=== PATIENT | male | born 1945 | race Two or more races ===

== ENCOUNTER 2017-06-08 11:03 | Observation (INO) | payer MEDICARE, MEDICAID ==
[~2017-06-08] VITALS: Ht 165.1 cm; Wt 72.6 kg
[~2017-06-08 11:03] MED LIST: ASPI81CH43 OR; CHOL1000 PO; GEM600T PO; GLIP2.5T24 PO; OMEP20TA44; TAMS0.4C36 PO
[2017-06-08 12:38] LABS: Urine Bacteria NONE SEEN /hpf (None Seen); Urine Blood Negative /uL (Negative); Urine Mucus FEW (None Seen); Urine Specific Gravity 1.013 (1.001-1.035); Urine WBC <1 /hpf (0 - 3)
[2017-06-08 13:02] LABS: Basophils # (auto) 0 uL; Eosinophils # (auto) 0.1 uL; Monocytes # (auto) 0.3 uL; White Blood Cell 3.5 10^3/uL (4.4-10.8)
[2017-06-08 13:04] LABS: Basophils % (auto) 0.3 % (0.0-2.0); Eosinophils % (auto) 3.4 % (0.0-7.0); Hematocrit 36.5 % (41.0-53.0); Hemoglobin 11.6 g/dL (13.5-17.5); Lymphocytes # (auto) 1.1 uL; Lymphocytes % (auto) 30.5 % (10.0-50.0); Mean Corpuscular Hemoglobin 23.2 pg (28.0-32.0); Mean Corpuscular Hgb Conc. 31.8 g/dL (32.0-36.0); Monocytes % (auto) 9.1 % (0.0-12.0); Neutrophils % (auto) 56.7 % (37.0-80.0); Nucleated Red Blood Cells % 0.2 %; Platelet Count (auto) 211 10^3/uL (140-450); Red Cell Distribution Width 17.8 % (11.8-14.3)
[2017-06-08 13:31] LABS: Alanine Aminotransferase 49 U/L (16-61); Albumin 4.2 g/dL (3.4-5.0); Anion Gap 13 (5-15); Aspartate Aminotransferase 44 U/L (15-37); BUN/Creatinine Ratio 18.2; Blood Urea Nitrogen 20 mg/dL (7-18); Calcium 9.6 mg/dL (8.5-10.1); Carbon Dioxide 22 mmol/L (21-32); Chloride 100 mmol/L (98-107); GFR African American 84 mL/min; GFR Non-African American 70 mL/min; Glucose 275 mg/dL (74-106); Potassium 4.3 mmol/L (3.5-5.1); Sodium 135 mmol/L (136-145)
[2017-06-08 13:35] LABS: Alkaline Phosphatase 71 U/L (45-117); Bilirubin, Total 0.3 mg/dL (0.2-1.0)
[2017-06-08 13:36] LABS: Total Protein 8.3 g/dL (6.4-8.2)
[2017-06-08 15:17] VITALS: BP 150/88
== END 2017-06-08 16:11 | disposition home or self-care (01) | DRG 812 ==
LOC: ER 11:03 → OVERFLOW 12:37 → ER 16:11
PROVIDERS: ADMIT Family Medicine; ATTEND Family Medicine
DX: D64.9 Anemia, unspecified (principal); E11.65 Type 2 diabetes mellitus with hyperglycemia; I10 Essential (primary) hypertension; K21.9 Gastro-esophageal reflux disease without esophagitis; Z82.49 Family history of ischemic heart disease and other diseases of the circulatory system; Z83.3 Family history of diabetes mellitus; Z90.49 Acquired absence of other specified parts of digestive tract
CPT/HCPCS: 36415; 71045; 80053; 81001; 82962; 83735; 83880; 84484; 85025; 93005; 99285; G0378

== ENCOUNTER 2022-04-16 09:31 | Inpatient (IN) | payer OTHER, MEDICAID ==
[~2022-04-16] VITALS: Ht 157.5 cm; Wt 74.7 kg
[~2022-04-16 09:31] MED LIST changes: +CHOL-17 PO; -CHOL1000 PO; -OMEP20TA44; +OMEP20TA44 PO
[2022-04-16] MEDS ORDERED: SODIUM CHLORIDE 0.9% 1,000 ML IV ONE (10:15)
[2022-04-16 11:01] LABS: Albumin 3.7 g/dL (3.4-5.0); Calcium 8.9 mg/dL (8.5-10.1); Potassium 4.5 mmol/L (3.5-5.1)
[2022-04-16 11:04] LABS: Basophils # (auto) 0 10 ^3/uL (0-0.2); Basophils % (auto) 0.2 % (0.0-2.0); Eosinophils # (auto) 0.1 10 ^3/uL (0-0.8); Eosinophils % (auto) 1.8 % (0.0-7.0); Hematocrit 30.7 % (41.0-53.0); Lymphocytes # (auto) 0.8 10 ^3/uL (0.4-5.4); Lymphocytes % (auto) 14.9 % (10.0-50.0); Mean Corpuscular Hemoglobin 26.9 pg (28.0-32.0); Mean Corpuscular Hgb Conc. 32.4 g/dL (32.0-36.0); Monocytes # (auto) 0.3 10 ^3/uL (0-1.3); Monocytes % (auto) 5.6 % (0.0-12.0); Neutrophils % (auto) 77.5 % (37.0-80.0); Nucleated Red Blood Cells % 0.1 %; Red Cell Distribution Width 14.4 % (11.8-14.3); White Blood Cell 5.1 10^3/uL (4.4-10.8)
[2022-04-16 11:07] LABS: BUN/Creatinine Ratio 19.1; Bilirubin, Total 0.3 mg/dL (0.2-1.0); Total Protein 6.5 g/dL (6.4-8.2)
[2022-04-17] MEDS ORDERED: HYDROcodone-ACET 5/325MG TAB PO PRN (02:45)
[2022-04-17] MEDS ORDERED: MORPHINE SULFATE INJ 2 MG/ml SYRG IV PRN ×2 (02:45→03:00)
[2022-04-17] MEDS ORDERED: DOCUSATE SOD 100 MG CAP PO PRN (02:45)
[2022-04-17] MEDS ORDERED: NITROGLYCERIN 0.4 MG SL TAB SL PRN ×2 (02:45→03:00)
[2022-04-17] MEDS ORDERED: ACETAMINOPHEN 325 MG TAB PO PRN (02:45)
[2022-04-17] MEDS ORDERED: SODIUM CHLORIDE 0.9% 1,000 ML IV SCH (02:45)
[2022-04-17] MEDS ORDERED: ONDANSETRON HCL 4 MG/2 ML VIAL IV PRN ×2 (02:45→22:00)
[2022-04-17] MEDS ORDERED: DEXTROSE (50%) 50ML SYRG IV PRN (02:45)
[2022-04-17] MEDS ORDERED: LACTULOSE 20Gm/30ML SOLN PO ONE (03:00)
[2022-04-17] MEDS ORDERED: SOD CHL 0.45% 1,000 ML IV ONE (03:15)
[2022-04-17] MEDS ORDERED: GOLYTELY 4L KIT PO ONE (04:00)
[2022-04-17 05:54] LABS: Basophils # (auto) 0 10 ^3/uL (0-0.2); Basophils % (auto) 0.3 % (0.0-2.0); Eosinophils # (auto) 0.2 10 ^3/uL (0-0.8); Hematocrit 25.5 % (41.0-53.0); Hemoglobin 8.6 g/dL (13.5-17.5); Lymphocytes # (auto) 1.3 10 ^3/uL (0.4-5.4); Lymphocytes % (auto) 22.8 % (10.0-50.0); Mean Corpuscular Hemoglobin 27.3 pg (28.0-32.0); Mean Corpuscular Hgb Conc. 33.6 g/dL (32.0-36.0); Mean Corpuscular Volume 81.2 fL (80.0-100.0); Monocytes # (auto) 0.4 10 ^3/uL (0-1.3); Monocytes % (auto) 7.3 % (0.0-12.0); Neutrophils # (auto) 3.7 10 ^3/uL (1.6-8.6); Neutrophils % (auto) 65.6 % (37.0-80.0); Red Blood Cells 3.14 10^6/uL (4.5-5.90); Red Cell Distribution Width 14.6 % (11.8-14.3); White Blood Cell 5.6 10^3/uL (4.4-10.8)
[2022-04-17] MEDS: ACCU-CHEK COMFORT CURVE STRIP VI SCH ×3 (06:00→18:09)
[2022-04-17 06:01] LABS: INR 0.99 (0.9-1.15)
[2022-04-17 06:15] LABS: Calcium 8.7 mg/dL (8.5-10.1); Potassium 4.3 mmol/L (3.5-5.1)
[2022-04-17 06:20] LABS: Albumin 3.2 g/dL (3.4-5.0); BUN/Creatinine Ratio 28.2; Bilirubin, Total 0.3 mg/dL (0.2-1.0)
[2022-04-17 06:38] LABS: Urine Bacteria NONE SEEN /hpf (None Seen); Urine Blood Negative /uL (Negative); Urine Hyaline Cast FEW /lpf (0 - 2); Urine Specific Gravity 1.013 (1.001-1.035); Urine WBC <1 /hpf (0 - 3)
[2022-04-17] MEDS: InsuLIN REG 1unit/0.01ml Soln (100units/ml) SC SCH ×3 (07:42→18:09)
[2022-04-17] MEDS ORDERED: FAMOTIDINE (10MG/ML) 2ML VL IV SCH (10:00)
[2022-04-17] MEDS: PANTOPRAZOLE 40 MG/10 ML VIAL INJ IV SCH ×2 (10:34→22:39)
[2022-04-17 12:00] LABS: Basophils # (auto) 0 10 ^3/uL (0-0.2); Basophils % (auto) 0.2 % (0.0-2.0); Eosinophils # (auto) 0.3 10 ^3/uL (0-0.8); Eosinophils % (auto) 3.5 % (0.0-7.0); Hematocrit 27.9 % (41.0-53.0); Hemoglobin 9.4 g/dL (13.5-17.5); Lymphocytes # (auto) 2.1 10 ^3/uL (0.4-5.4); Lymphocytes % (auto) 26.6 % (10.0-50.0); Mean Corpuscular Hemoglobin 27.1 pg (28.0-32.0); Mean Corpuscular Hgb Conc. 33.5 g/dL (32.0-36.0); Monocytes # (auto) 0.5 10 ^3/uL (0-1.3); Neutrophils # (auto) 5.1 10 ^3/uL (1.6-8.6); Neutrophils % (auto) 63.7 % (37.0-80.0); Nucleated Red Blood Cells % 0.1 %; Red Blood Cells 3.45 10^6/uL (4.5-5.90); Red Cell Distribution Width 14.6 % (11.8-14.3); White Blood Cell 8.1 10^3/uL (4.4-10.8)
[2022-04-17] MEDS: OCTREOTIDE ACETATE 500 MCG in SODIUM CHL 0.9% 99 ML IV SCH (15:29)
[2022-04-17 19:28] LABS: Hematocrit 22.1 % (41.0-53.0); Hemoglobin 7.5 g/dL (13.5-17.5)
[2022-04-17] MEDS: MORPHINE SULFATE INJ 2 MG/ml SYRG IV PRN (22:37)
[2022-04-18] MEDS: ACCU-CHEK COMFORT CURVE STRIP VI SCH ×5 (01:00→23:50)
[2022-04-18] MEDS: InsuLIN REG 1unit/0.01ml Soln (100units/ml) SC SCH ×5 (01:10→23:50)
[2022-04-18] MEDS: OCTREOTIDE ACETATE 500 MCG in SODIUM CHL 0.9% 99 ML IV SCH ×4 (01:12→22:07)
[2022-04-18 02:33] LABS: Hematocrit 20.4 % (41.0-53.0)
[2022-04-18 02:42] LABS: Hemoglobin 6.8 g/dL (13.5-17.5)
[2022-04-18 03:33] VITALS: BP 138/56
[2022-04-18 03:50] VITALS: BP 146/51
[2022-04-18 06:50] VITALS: BP 148/50
[2022-04-18 08:55] LABS: Basophils # (auto) 0 10 ^3/uL (0-0.2); Basophils % (auto) 0.2 % (0.0-2.0); Eosinophils # (auto) 0.1 10 ^3/uL (0-0.8); Eosinophils % (auto) 1.4 % (0.0-7.0); Hematocrit 27.3 % (41.0-53.0); Hemoglobin 8.9 g/dL (13.5-17.5); Lymphocytes # (auto) 1.7 10 ^3/uL (0.4-5.4); Lymphocytes % (auto) 17.6 % (10.0-50.0); Mean Corpuscular Hgb Conc. 32.4 g/dL (32.0-36.0); Mean Corpuscular Volume 83.2 fL (80.0-100.0); Monocytes # (auto) 0.7 10 ^3/uL (0-1.3); Monocytes % (auto) 7.2 % (0.0-12.0); Neutrophils # (auto) 7.1 10 ^3/uL (1.6-8.6); Neutrophils % (auto) 73.6 % (37.0-80.0); Nucleated Red Blood Cells % 0.1 %; Red Blood Cells 3.28 10^6/uL (4.5-5.90); Red Cell Distribution Width 15.1 % (11.8-14.3); White Blood Cell 9.6 10^3/uL (4.4-10.8)
[2022-04-18 09:07] LABS: Albumin 3.3 g/dL (3.4-5.0); Calcium 8.3 mg/dL (8.5-10.1); Potassium 4.3 mmol/L (3.5-5.1)
[2022-04-18 09:11] LABS: BUN/Creatinine Ratio 24.8; Bilirubin, Total 0.6 mg/dL (0.2-1.0); Total Protein 6.1 g/dL (6.4-8.2)
[2022-04-18] MEDS: PANTOPRAZOLE 40 MG/10 ML VIAL INJ IV SCH ×2 (09:42→22:06)
[2022-04-18] MEDS ORDERED: GOLYTELY 4L KIT PO ONE (12:30)
[2022-04-18 13:23] LABS: Basophils # (auto) 0 10 ^3/uL (0-0.2); Basophils % (auto) 0.3 % (0.0-2.0); Eosinophils # (auto) 0.2 10 ^3/uL (0-0.8); Eosinophils % (auto) 1.8 % (0.0-7.0); Hematocrit 25.1 % (41.0-53.0); Hemoglobin 8.5 g/dL (13.5-17.5); Lymphocytes # (auto) 1.7 10 ^3/uL (0.4-5.4); Lymphocytes % (auto) 19.2 % (10.0-50.0); Mean Corpuscular Hemoglobin 27.9 pg (28.0-32.0); Mean Corpuscular Hgb Conc. 33.8 g/dL (32.0-36.0); Mean Corpuscular Volume 82.4 fL (80.0-100.0); Monocytes # (auto) 0.6 10 ^3/uL (0-1.3); Monocytes % (auto) 7.1 % (0.0-12.0); Neutrophils # (auto) 6.5 10 ^3/uL (1.6-8.6); Neutrophils % (auto) 71.6 % (37.0-80.0); Nucleated Red Blood Cells % 0.1 %; Red Blood Cells 3.05 10^6/uL (4.5-5.90); Red Cell Distribution Width 14.9 % (11.8-14.3); White Blood Cell 9.1 10^3/uL (4.4-10.8)
[2022-04-18 13:24] LABS: Hematocrit 25.2 % (41.0-53.0); Hemoglobin 8.6 g/dL (13.5-17.5)
[2022-04-18 18:12] VITALS: BP 158/64
[2022-04-18 18:13] LABS: Hematocrit 25.4 % (41.0-53.0); Hemoglobin 8.6 g/dL (13.5-17.5)
[2022-04-18] MEDS ORDERED: CARB25TA77 PO (19:02)
[2022-04-18] MEDS ORDERED: NAP500T PO (19:02)
[2022-04-18] MEDS ORDERED: LOSA-39 PO (19:02)
[2022-04-18 22:00] VITALS: BP 152/70
[2022-04-18] MEDS ORDERED: POLYETHYLENE GLYCOL 17 GM PWDR PO ONE (22:45)
[2022-04-19] VITALS (9 sets, daily range): BP systolic 137–185; BP diastolic 59–77
[2022-04-19] MEDS: InsuLIN REG 1unit/0.01ml Soln (100units/ml) SC SCH ×4 (06:00→23:37)
[2022-04-19] MEDS: ACCU-CHEK COMFORT CURVE STRIP VI SCH ×3 (06:12→17:41)
[2022-04-19 07:33] LABS: Basophils # (auto) 0 10 ^3/uL (0-0.2); Basophils % (auto) 0.3 % (0.0-2.0); Eosinophils # (auto) 0.3 10 ^3/uL (0-0.8); Hemoglobin 8.1 g/dL (13.5-17.5); Mean Corpuscular Volume 81.7 fL (80.0-100.0); Neutrophils # (auto) 4.3 10 ^3/uL (1.6-8.6); Nucleated Red Blood Cells % 0.1 %
[2022-04-19 07:36] LABS: Eosinophils % (auto) 4.7 % (0.0-7.0); Hematocrit 23.7 % (41.0-53.0); Lymphocytes # (auto) 1.3 10 ^3/uL (0.4-5.4); Lymphocytes % (auto) 20.5 % (10.0-50.0); Mean Corpuscular Hemoglobin 27.9 pg (28.0-32.0); Mean Corpuscular Hgb Conc. 34.2 g/dL (32.0-36.0); Monocytes # (auto) 0.4 10 ^3/uL (0-1.3); Monocytes % (auto) 6.3 % (0.0-12.0); Neutrophils % (auto) 68.2 % (37.0-80.0); White Blood Cell 6.3 10^3/uL (4.4-10.8)
[2022-04-19 08:01] LABS: Potassium 3.9 mmol/L (3.5-5.1)
[2022-04-19 08:09] LABS: Albumin 3.5 g/dL (3.4-5.0); Bilirubin, Total 0.4 mg/dL (0.2-1.0); Calcium 8.2 mg/dL (8.5-10.1); Total Protein 6.4 g/dL (6.4-8.2)
[2022-04-19] MEDS: PANTOPRAZOLE 40 MG/10 ML VIAL INJ IV SCH ×2 (08:51→22:13)
[2022-04-19] MEDS: OCTREOTIDE ACETATE 500 MCG in SODIUM CHL 0.9% 99 ML IV SCH (08:52)
[2022-04-19] MEDS: MORPHINE SULFATE INJ 2 MG/ml SYRG IV PRN (09:24)
[2022-04-19] MEDS ORDERED: hydrALAZINE HCL 20 MG/ML VL IV PRN (10:15)
[2022-04-19] MEDS ORDERED: amLODIPine BESYLATE 5 MG TAB PO ONE (10:15)
[2022-04-19] MEDS ORDERED: SODIUM CHLORIDE LOCK 10 ML ONE (16:56)
[2022-04-19 17:52] LABS: Hematocrit 24.9 % (41.0-53.0); Hemoglobin 8.1 g/dL (13.5-17.5)
[2022-04-19] MEDS: MIDAZOLAM HCL 5 MG/ML-1ML VIAL ONE ×2 (19:12→19:17)
[2022-04-19] MEDS: fentaNYL CITRATE 100 MCG/2 ML VL ONE ×2 (19:12→19:17)
[2022-04-19] MEDS: diphenhdrAMINE HCL 50 MG/1 ML VL ONE ×2 (19:12→19:17)
[2022-04-20] MEDS: ACCU-CHEK COMFORT CURVE STRIP VI SCH ×3 (00:02→12:00)
[2022-04-20] MEDS: OCTREOTIDE ACETATE 500 MCG in SODIUM CHL 0.9% 99 ML IV SCH ×2 (01:39→11:45)
[2022-04-20 05:00] VITALS: BP 135/57
[2022-04-20] MEDS: InsuLIN REG 1unit/0.01ml Soln (100units/ml) SC SCH ×2 (05:57→12:00)
[2022-04-20 06:21] LABS: Basophils # (auto) 0 10 ^3/uL (0-0.2); Basophils % (auto) 0.2 % (0.0-2.0); Eosinophils # (auto) 0.3 10 ^3/uL (0-0.8); Hematocrit 23.5 % (41.0-53.0); Hemoglobin 7.8 g/dL (13.5-17.5); Lymphocytes # (auto) 1.6 10 ^3/uL (0.4-5.4); Lymphocytes % (auto) 24.6 % (10.0-50.0); Mean Corpuscular Hemoglobin 27.6 pg (28.0-32.0); Mean Corpuscular Hgb Conc. 33.4 g/dL (32.0-36.0); Mean Corpuscular Volume 82.5 fL (80.0-100.0); Monocytes # (auto) 0.5 10 ^3/uL (0-1.3); Monocytes % (auto) 7.3 % (0.0-12.0); Neutrophils # (auto) 4.1 10 ^3/uL (1.6-8.6); Neutrophils % (auto) 62.9 % (37.0-80.0); Nucleated Red Blood Cells % 0.1 %; Red Blood Cells 2.85 10^6/uL (4.5-5.90); Red Cell Distribution Width 14.9 % (11.8-14.3); White Blood Cell 6.5 10^3/uL (4.4-10.8)
[2022-04-20 06:36] LABS: Albumin 3.3 g/dL (3.4-5.0); Calcium 8.3 mg/dL (8.5-10.1); Potassium 3.6 mmol/L (3.5-5.1)
[2022-04-20 06:39] LABS: BUN/Creatinine Ratio 20.2; Bilirubin, Total 0.7 mg/dL (0.2-1.0); Total Protein 5.9 g/dL (6.4-8.2)
[2022-04-20 08:15] VITALS: BP 163/46
[2022-04-20 09:10] VITALS: BP 163/46
[2022-04-20] MEDS ORDERED: amLODIPine BESYLATE 5 MG TAB PO SCH (10:00)
[2022-04-20] MEDS: PANTOPRAZOLE 40 MG/10 ML VIAL INJ IV SCH (10:22)
[2022-04-20 10:23] LABS: Hematocrit 26.8 % (41.0-53.0); Hemoglobin 8.9 g/dL (13.5-17.5)
[2022-04-20] MEDS ORDERED: FERR324T4 PO (10:27)
[2022-04-20] MEDS ORDERED: VITACAP46 OR (10:27)
[2022-04-20 12:34] VITALS: BP 145/54
[2022-04-20 13:13] VITALS: BP 145/54
== END 2022-04-20 13:40 | disposition home health service (06) | DRG 378 ==
LOC: ER 09:31 → OVERFLOW 04-17 03:03 → UNDOADMOB 04-17 03:03 → CENTRAL 04-18 17:35 → OVERFLOW 04-18 17:35 → CENTRAL 04-19 03:18 → OBSVTOIN 04-19 03:19
PROVIDERS: ADMIT Internal Medicine; ATTEND Internal Medicine
PROC: 30233N1 Transfusion of Nonautologous Red Blood Cells into Peripheral Vein, Percutaneous Approach (ICD-10-PCS; principal; 2022-04-18)
PROC: 30233K1 Transfusion of Nonautologous Frozen Plasma into Peripheral Vein, Percutaneous Approach (ICD-10-PCS; 2022-04-19)
PROC: 0DJD8ZZ Inspection of Lower Intestinal Tract, Via Natural or Artificial Opening Endoscopic (ICD-10-PCS; 2022-04-19)
DX: K57.31 Diverticulosis of large intestine without perforation or abscess with bleeding (principal); D62 Acute posthemorrhagic anemia; E11.65 Type 2 diabetes mellitus with hyperglycemia; E78.5 Hyperlipidemia, unspecified; G20 Parkinson's disease; I10 Essential (primary) hypertension; K21.9 Gastro-esophageal reflux disease without esophagitis; K64.8 Other hemorrhoids; K76.0 Fatty (change of) liver, not elsewhere classified; Z20.822 Contact with and (suspected) exposure to COVID-19; Z83.3 Family history of diabetes mellitus; Z90.49 Acquired absence of other specified parts of digestive tract; Z79.84 Long term (current) use of oral hypoglycemic drugs
CPT/HCPCS: 36415; 71045; 74176; 80053; 81001; 82962; 85014; 85018; 85025; 85610; 86850; 86900; 86901; 86920; 87426; C9113; G0378; J1815; J2250; J2405; J3490

== ENCOUNTER 2022-08-12 09:14 | Emergency (ER) | payer OTHER, MEDICAID ==
[~2022-08-12] VITALS: Ht 162.6 cm; Wt 68.1 kg
[~2022-08-12 09:14] MED LIST changes: -ASPI81CH43 OR; +CARB25TA77 PO; +FERR324T4 PO; +LOSA-39 PO; +VITACAP46 OR
[2022-08-12 10:22] LABS: Potassium 4.2 mmol/L (3.5-5.1)
[2022-08-12 10:42] LABS: Albumin 4.3 g/dL (3.4-5.0); BUN/Creatinine Ratio 22.2 (10.0-20.0); Basophils # (auto) 0 10 ^3/uL (0-0.2); Bilirubin, Total 0.4 mg/dL (0.2-1.0); Calcium 9.1 mg/dL (8.5-10.1); Eosinophils # (auto) 0.1 10 ^3/uL (0-0.8); Hemoglobin 12.2 g/dL (13.5-17.5); Red Cell Distribution Width 15.4 % (11.8-14.3); Total Protein 8.2 g/dL (6.4-8.2)
[2022-08-12 10:44] LABS: Basophils % (auto) 0.2 % (0.0-2.0); Eosinophils % (auto) 2.9 % (0.0-7.0); Hematocrit 37.5 % (41.0-53.0); Lymphocytes % (auto) 25.5 % (10.0-50.0); Mean Corpuscular Hemoglobin 25.8 pg (28.0-32.0); Mean Corpuscular Hgb Conc. 32.6 g/dL (32.0-36.0); Mean Corpuscular Volume 79.2 fL (80.0-100.0); Monocytes # (auto) 0.3 10 ^3/uL (0-1.3); Monocytes % (auto) 7.6 % (0.0-12.0); Neutrophils # (auto) 2.4 10 ^3/uL (1.6-8.6); Neutrophils % (auto) 63.8 % (37.0-80.0); Red Blood Cells 4.74 10^6/uL (4.5-5.90); White Blood Cell 3.7 10^3/uL (4.4-10.8)
[2022-08-12 11:13] LABS: Lactic Acid w/Reflex 3.3 mmol/L (0.4-2.0)
[2022-08-12] MEDS ORDERED: IOHEXOL 300 MG/ML 100ML BOTTLE IJ ONE (11:30)
[2022-08-12 11:47] LABS: INR 0.98 (0.9-1.15); Partial Thromboplastin Time 26.7 sec (24.6-33.4)
[2022-08-12] MEDS ORDERED: LACTATED RINGER'S 1,000 ML IV ONE (12:45)
[2022-08-12 13:57] LABS: Hematocrit 34.5 % (41.0-53.0); Hemoglobin 11.7 g/dL (13.5-17.5); Mean Corpuscular Hemoglobin 26.7 pg (28.0-32.0); Mean Corpuscular Hgb Conc. 33.8 g/dL (32.0-36.0); Mean Corpuscular Volume 78.8 fL (80.0-100.0); Red Blood Cells 4.38 10^6/uL (4.5-5.90); Red Cell Distribution Width 15.6 % (11.8-14.3); White Blood Cell 4.7 10^3/uL (4.4-10.8)
[2022-08-12 14:00] LABS: Basophils % (manual) 0 (0.0-2.0); Blast Cells 0; Metamyelocytes % 0; Myelocytes % 0; Promyelocytes % 0; Reactive Lymphocytes 0
[2022-08-12 14:04] LABS: Basophils # (auto) 0 10 ^3/uL (0-0.2); Basophils % (auto) 0.3 % (0.0-2.0); Eosinophils # (auto) 0.1 10 ^3/uL (0-0.8); Mean Corpuscular Hemoglobin 25.9 pg (28.0-32.0); Mean Corpuscular Hgb Conc. 32.6 g/dL (32.0-36.0); Neutrophils # (auto) 3.1 10 ^3/uL (1.6-8.6)
[2022-08-12 14:07] LABS: Eosinophils % (auto) 2.4 % (0.0-7.0); Hematocrit 38.2 % (41.0-53.0); Hemoglobin 12.5 g/dL (13.5-17.5); Lymphocytes # (auto) 1.6 10 ^3/uL (0.4-5.4); Lymphocytes % (auto) 31.5 % (10.0-50.0); Mean Corpuscular Volume 79.3 fL (80.0-100.0); Monocytes # (auto) 0.3 10 ^3/uL (0-1.3); Monocytes % (auto) 6.5 % (0.0-12.0); Neutrophils % (auto) 59.3 % (37.0-80.0); Nucleated Red Blood Cells % 0.5 %; Red Blood Cells 4.82 10^6/uL (4.5-5.90); White Blood Cell 5.2 10^3/uL (4.4-10.8)
[2022-08-12 14:12] LABS: Urine WBC None Seen /hpf (0 - 3)
[2022-08-12 14:20] LABS: Urine Bacteria NONE SEEN /hpf (None Seen); Urine Blood Negative /uL (Negative)
[2022-08-12 16:03] VITALS: BP 168/71
[2022-08-12 16:25] LABS: Band Neutrophils % (manual) 2; Eosinophils % (manual) 2 (0-7); Lymphocytes % (manual) 15 (10.0-50.0); Monocytes % (manual) 7 (0-12)
== END 2022-08-12 16:07 | disposition home or self-care (01) ==
LOC: EDUNIT# 09:14 → ER 09:14
DX: K62.5 Hemorrhage of anus and rectum (principal); E11.9 Type 2 diabetes mellitus without complications; E78.5 Hyperlipidemia, unspecified; I10 Essential (primary) hypertension; R06.02 Shortness of breath; Z20.822 Contact with and (suspected) exposure to COVID-19
CPT/HCPCS: 36415; 71045; 74177; 80053; 81001; 83605; 83880; 84484; 85007; 85025; 85027; 85610; 85730; 86850; 86900; 86901; 87426; 93005; 96360; 99285; Q9967

== ENCOUNTER 2023-05-14 09:22 | Observation (INO) | payer OTHER, MEDICAID ==
[~2023-05-14] VITALS: Ht 162.6 cm; Wt 57.6 kg
[2023-05-14] VITALS (7 sets, daily range): BP systolic 124–144; BP diastolic 36–64; PULSE 71–87; RESP 18–21; TEMP 97.5–97.9; O2SAT 98–100
[~2023-05-14 09:22] MED LIST changes: +DEXL60CA4 PO; +FENO200C25 PO; +GLYB5TAB66 PO; -LOSA-39 PO; +LOSA100T58 PO; +NIAC500T25 PO; +OME40GT PO; +TAMS-35 PO
[2023-05-14 10:13] LABS: Basophils # (auto) 0 10 ^3/uL (0-0.2); Basophils % (auto) 0.2 % (0.0-2.0); Eosinophils # (auto) 0 10 ^3/uL (0-0.8); Lymphocytes # (auto) 0.8 10 ^3/uL (0.4-5.4); Monocytes # (auto) 0.5 10 ^3/uL (0-1.3)
[2023-05-14 10:15] LABS: Eosinophils % (auto) 0.3 % (0.0-7.0); Hematocrit 19.3 % (41.0-53.0); Lymphocytes % (auto) 9.2 % (10.0-50.0); Mean Corpuscular Hgb Conc. 32.8 g/dL (32.0-36.0); Mean Corpuscular Volume 82.3 fL (80.0-100.0); Monocytes % (auto) 5.5 % (0.0-12.0); Neutrophils # (auto) 7.3 10 ^3/uL (1.6-8.6); Neutrophils % (auto) 84.8 % (37.0-80.0); Nucleated Red Blood Cells % 0.1 %; Red Blood Cells 2.34 10^6/uL (4.5-5.90); Red Cell Distribution Width 16.2 % (11.8-14.3); White Blood Cell 8.7 10^3/uL (4.4-10.8)
[2023-05-14 10:25] LABS: Hemoglobin 6.3 g/dL (13.5-17.5)
[2023-05-14 10:35] LABS: Alanine Aminotransferase 14 U/L (7-40); Albumin 4.1 g/dL (3.2-4.8); Alkaline Phosphatase 74 U/L (46-116); Anion Gap 15 (5-15); Aspartate Aminotransferase 8 U/L (13-40); BUN/Creatinine Ratio 24.2 (10.0-20.0); Bilirubin, Total 0.2 mg/dL (0.2-1.0); Blood Alcohol < 3.0 mg/dL (<10); Blood Urea Nitrogen 36 mg/dL (9-23); Calcium 8.7 mg/dL (8.5-10.1); Carbon Dioxide 15 mmol/L (20-30); Chloride 110 mmol/L (98-107); Glucose 285 mg/dL (74-106); Potassium 5.3 mmol/L (3.5-5.1); Sodium 140 mmol/L (136-145)
[2023-05-14 10:39] LABS: INR 1.04 (0.9-1.15); Partial Thromboplastin Time 22.6 SEC (24.5-34.5); Prothrombin Time 10.9 sec (9.3-11.8)
[2023-05-14 10:43] LABS: Anisocytosis Slight; Platelet Estimate Adequate
[2023-05-14 11:21] LABS: Urine Epithelial Cast None Seen /hpf (<5)
[2023-05-14 11:34] LABS: Urine Bacteria FEW /hpf (None Seen); Urine Blood Negative /uL (Negative); Urine Clarity Clear (Clear); Urine Color Yellow (Yellow); Urine Protein, UAD TRACE (Negative); Urine Specific Gravity 1.021 (1.001-1.035); Urine Urobilinogen Normal (Negative); Urine WBC <1 /hpf (0 - 3)
[2023-05-14 11:40] LABS: Amphetamine Screen, Urine Neg (NEGATIVE); Barbiturate Scree,Urine Neg (NEGATIVE); Benzodiazephine Screen, Urine Neg (NEGATIVE); Cocaine Screen, Urine Neg (NEGATIVE)
[2023-05-14 11:41] LABS: Cannabinoid Screen, Urine Neg (NEGATIVE); Opiate Scree,Urine Neg (NEGATIVE); Phencyclidine Screen, Urine Neg (NEGATIVE)
[2023-05-14] MEDS ORDERED: SODIUM CHLORIDE 0.9% 1,000 ML IV ONE (14:00)
[2023-05-14] MEDS ORDERED: MORPHINE SULFATE INJ 2 MG/ml SYRG IV PRN (14:00)
[2023-05-14] MEDS ORDERED: PANTOPRAZOLE 40 MG/10 ML VIAL INJ IV ONE (14:00)
[2023-05-14] MEDS ORDERED: NITROGLYCERIN 0.4 MG SL TAB SL PRN (14:00)
[2023-05-14] MEDS: SODIUM CHLORIDE 0.9% 1,000 ML IV SCH (15:23)
[2023-05-15] VITALS (11 sets, daily range): BP systolic 133–168; BP diastolic 48–91; PULSE 64–73; RESP 16–18; TEMP 97.2–98.5; O2SAT 98–100
[2023-05-15 05:55] LABS: Basophils # (auto) 0 10 ^3/uL (0-0.2); Basophils % (auto) 0.3 % (0.0-2.0); Eosinophils # (auto) 0.1 10 ^3/uL (0-0.8); Hemoglobin 8.9 g/dL (13.5-17.5); Lymphocytes # (auto) 1.6 10 ^3/uL (0.4-5.4); Lymphocytes % (auto) 22.5 % (10.0-50.0); Mean Corpuscular Hemoglobin 27.5 pg (28.0-32.0); Mean Corpuscular Hgb Conc. 32.8 g/dL (32.0-36.0); Mean Corpuscular Volume 83.8 fL (80.0-100.0); Monocytes # (auto) 0.4 10 ^3/uL (0-1.3); Monocytes % (auto) 5.4 % (0.0-12.0); Neutrophils # (auto) 4.9 10 ^3/uL (1.6-8.6); Neutrophils % (auto) 69.8 % (37.0-80.0); Nucleated Red Blood Cells % 0.1 %; Red Blood Cells 3.22 10^6/uL (4.5-5.90); Red Cell Distribution Width 16.5 % (11.8-14.3); White Blood Cell 7.1 10^3/uL (4.4-10.8)
[2023-05-15 06:01] LABS: Alanine Aminotransferase 12 U/L (7-40); Albumin 3.9 g/dL (3.2-4.8); Alkaline Phosphatase 70 U/L (46-116); Anion Gap 10 (5-15); Aspartate Aminotransferase 15 U/L (13-40); Bilirubin, Total 0.3 mg/dL (0.2-1.0); Blood Urea Nitrogen 31 mg/dL (9-23); Calcium 8.6 mg/dL (8.5-10.1); Carbon Dioxide 17 mmol/L (20-30); Chloride 116 mmol/L (98-107); Potassium 4.4 mmol/L (3.5-5.1); Sodium 143 mmol/L (136-145); Total Protein 5.7 g/dL (5.7-8.2)
[2023-05-15 06:33] LABS: Glucose 108 mg/dL (74-106)
[2023-05-15] MEDS: SODIUM CHLORIDE 0.9% 1,000 ML IV SCH ×2 (06:40→23:20)
[2023-05-15 08:07] LABS: Anisocytosis Slight; Platelet Estimate Decreased
[2023-05-15] MEDS ORDERED: PANTOPRAZOLE 40mg/50ML NS AE 50 ML IV ONE (10:00)
[2023-05-15] MEDS ORDERED: SODIUM CHLORIDE LOCK 10 ML ONE (12:08)
[2023-05-15] MEDS ORDERED: MIDAZOLAM HCL 5 MG/ML-1ML VIAL ONE (12:09)
[2023-05-15] MEDS ORDERED: fentaNYL CITRATE 100 MCG/2 ML VL ONE (12:09)
[2023-05-15] MEDS ORDERED: diphenhdrAMINE HCL 50 MG/1 ML VL ONE (12:09)
[2023-05-15] MEDS ORDERED: BENZOCAINE (DENTAL) 20 % SPRAY 60ML MT ONE (13:25)
[2023-05-15] MEDS ORDERED: GOLYTELY 4L KIT PO ONE (15:00)
[2023-05-15] MEDS ORDERED: BISACODYL 5 MG EC TAB PO ONE (15:00)
[2023-05-15 15:03] LABS: Hemoglobin 8.8 g/dL (13.5-17.5)
[2023-05-15] MEDS ORDERED: hydrALAZINE HCL 20 MG/ML VL IV PRN (16:00)
[2023-05-15 22:43] LABS: Hematocrit 27.3 % (41.0-53.0); Hemoglobin 9.1 g/dL (13.5-17.5)
[2023-05-15] MEDS: CARBIDOPA W LEVODOPA CR 25/100mg TABLET PO SCH (22:59)
[2023-05-16] VITALS (8 sets, daily range): BP systolic 145–192; BP diastolic 67–94; PULSE 61–94; RESP 16–19; TEMP 36.7; O2SAT 98–100
[2023-05-16] MEDS: CARBIDOPA W LEVODOPA CR 25/100mg TABLET PO SCH ×2 (06:00→14:57)
[2023-05-16] MEDS ORDERED: diphenhdrAMINE HCL 50 MG/1 ML VL ONE (07:28)
[2023-05-16] MEDS ORDERED: SODIUM CHLORIDE LOCK 10 ML ONE (07:28)
[2023-05-16] MEDS ORDERED: fentaNYL CITRATE 100 MCG/2 ML VL ONE (07:29)
[2023-05-16] MEDS: MIDAZOLAM HCL 5 MG/ML-1ML VIAL ONE ×2 (09:20→14:57)
[2023-05-16] MEDS ORDERED: TAMSULOSIN HYDROCHLORIDE 0.4 MG CAP PO SCH (10:00)
[2023-05-16] MEDS ORDERED: PATIENTS OWN MEDICATION (Losartan Potassium 1 TAB) PO SCH (10:00)
[2023-05-16] MEDS ORDERED: LOSARTAN POTASSIUM 50 MG TAB PO SCH (10:00)
[2023-05-16] MEDS ORDERED: PANT40TA2 PO (11:43)
[2023-05-16 13:59] LABS: Basophils # (auto) 0 10 ^3/uL (0-0.2); Basophils % (auto) 0.1 % (0.0-2.0); Eosinophils # (auto) 0.1 10 ^3/uL (0-0.8); Eosinophils % (auto) 1.5 % (0.0-7.0); Hematocrit 28.7 % (41.0-53.0); Hemoglobin 9.6 g/dL (13.5-17.5); Lymphocytes # (auto) 0.8 10 ^3/uL (0.4-5.4); Lymphocytes % (auto) 10.7 % (10.0-50.0); Mean Corpuscular Hemoglobin 28.3 pg (28.0-32.0); Mean Corpuscular Hgb Conc. 33.3 g/dL (32.0-36.0); Monocytes # (auto) 0.4 10 ^3/uL (0-1.3); Monocytes % (auto) 5.3 % (0.0-12.0); Neutrophils % (auto) 82.4 % (37.0-80.0); Red Blood Cells 3.38 10^6/uL (4.5-5.90); Red Cell Distribution Width 16.6 % (11.8-14.3); White Blood Cell 7.3 10^3/uL (4.4-10.8)
[2023-05-16 14:18] LABS: Alanine Aminotransferase 13 U/L (7-40); Albumin 4.1 g/dL (3.2-4.8); Alkaline Phosphatase 81 U/L (46-116); Anion Gap 12 (5-15); Aspartate Aminotransferase 21 U/L (13-40); BUN/Creatinine Ratio 12.3 (10.0-20.0); Bilirubin, Total 0.3 mg/dL (0.2-1.0); Blood Urea Nitrogen 15 mg/dL (9-23); Calcium 8.8 mg/dL (8.5-10.1); Carbon Dioxide 19 mmol/L (20-30); Chloride 108 mmol/L (98-107); Potassium 3.8 mmol/L (3.5-5.1); Sodium 139 mmol/L (136-145); Total Protein 6.2 g/dL (5.7-8.2)
[2023-05-16 14:21] LABS: Glucose 234 mg/dL (74-106)
== END 2023-05-16 17:00 | disposition home health service (06) ==
LOC: ER 09:22 → TELE 13:57 → TELE-WESTW 22:07
PROVIDERS: ADMIT Student in an Organized Health Care Education/Training Program; ATTEND Student in an Organized Health Care Education/Training Program
DX: K92.2 Gastrointestinal hemorrhage, unspecified (principal); K44.9 Diaphragmatic hernia without obstruction or gangrene; N40.0 Benign prostatic hyperplasia without lower urinary tract symptoms; F03.90 Unspecified dementia, unspecified severity, without behavioral disturbance, psychotic disturbance, mood disturbance, and anxiety; G20.A1 Parkinson's disease without dyskinesia, without mention of fluctuations; F02.80 Dementia in other diseases classified elsewhere, unspecified severity, without behavioral disturbance, psychotic disturbance, mood disturbance, and anxiety; D64.9 Anemia, unspecified; K64.8 Other hemorrhoids; E87.5 Hyperkalemia; E78.5 Hyperlipidemia, unspecified; E11.9 Type 2 diabetes mellitus without complications; K21.00 Gastro-esophageal reflux disease with esophagitis, without bleeding; I10 Essential (primary) hypertension; Z90.49 Acquired absence of other specified parts of digestive tract; Z79.899 Other long term (current) drug therapy
CPT/HCPCS: 36415; 36430; 43239; 45378; 80053; 80307; 80320; 81001; 83036; 85014; 85018; 85025; 85610; 85730; 86850; 86900; 86901; 86920; 88305; 88342; 93005; 96361; 96365; 96366; 96376; 99291; C9113; G0378; J1200; J2250; J3010; J7030; P9016

== ENCOUNTER 2024-03-11 10:40 | Emergency (ER) | payer OTHER, MEDICAID ==
[~2024-03-11] VITALS: Ht 165.1 cm; Wt 54.5 kg
[~2024-03-11 10:40] MED LIST changes: +LOSA-535 PO; -LOSA100T58 PO; -OME40GT PO; -OMEP20TA44 PO; +PANT40TA2 PO; -TAMS-35 PO; -TAMS0.4C36 PO; +TAMS0.4C39 PO
[2024-03-11] MEDS ORDERED: GEMF-66 PO (11:01)
[2024-03-11] MEDS ORDERED: NAP500T PO (11:01)
[2024-03-11] MEDS ORDERED: METF-372 PO (11:01)
[2024-03-11] MEDS ORDERED: CARB-87 PO (11:01)
[2024-03-11] MEDS ORDERED: CARBIDOPA-LEVODOPA (11:01)
[2024-03-11] MEDS ORDERED: SIMV40TA18 PO (11:01)
[2024-03-11] MEDS ORDERED: ASPI-325 PO (11:01)
[2024-03-11] MEDS ORDERED: BENA-36 PO (11:01)
[2024-03-11] MEDS ORDERED: OMEP1CAP70 PO (11:01)
[2024-03-11 14:51] LABS: Urine Bacteria None Seen /hpf (None Seen)
[2024-03-11 15:02] LABS: Urine Blood 2+ /uL (Negative); Urine Clarity Clear (Clear); Urine Hyaline Cast FEW /lpf (0 - 2); Urine Protein, UAD Negative (Negative); Urine Specific Gravity 1.011 (1.001-1.035); Urine Urobilinogen Normal (Negative); Urine WBC 2 /hpf (0 - 3)
[2024-03-11 15:03] LABS: Urine Color Straw (Yellow)
[2024-03-11 15:44] VITALS: BP 130/71; PULSE 71; RESP 18; O2SAT 100
[2024-03-11] MEDS ORDERED: TAMS-35 PO (17:21)
[2024-03-11] MEDS ORDERED: HYDR-4902 PO (17:21)
== END 2024-03-11 19:03 | disposition home or self-care (01) ==
LOC: ER 10:40
DX: N20.0 Calculus of kidney (principal); K21.9 Gastro-esophageal reflux disease without esophagitis; I10 Essential (primary) hypertension; E11.9 Type 2 diabetes mellitus without complications; G20.A1 Parkinson's disease without dyskinesia, without mention of fluctuations; Z79.82 Long term (current) use of aspirin; Z79.84 Long term (current) use of oral hypoglycemic drugs; Z79.899 Other long term (current) drug therapy; Z90.49 Acquired absence of other specified parts of digestive tract
CPT/HCPCS: 51702; 81001

== ENCOUNTER 2024-03-14 11:19 | Emergency (ER) | payer OTHER, MEDICAID ==
[~2024-03-14] VITALS: Ht 165.1 cm; Wt 54.5 kg
[~2024-03-14 11:19] MED LIST changes: +ASPI-325 PO; +BENA-36 PO; +CARB-87 PO; +CARBIDOPA-LEVODOPA; +GEMF-66 PO; +HYDR-4902 PO; +METF-372 PO; +NAP500T PO; +OMEP1CAP70 PO; +SIMV40TA18 PO; +TAMS-35 PO
[2024-03-14 13:03] LABS: Chloride 108 mmol/L (98-107); Potassium 4.3 mmol/L (3.5-5.1); Sodium 143 mmol/L (136-145)
[2024-03-14 13:04] LABS: Anion Gap 9 (5-15); Basophils # (auto) 0 10 ^3/uL (0-0.2); Basophils % (auto) 0.2 % (0.0-2.0); Calcium 9.4 mg/dL (8.7-10.4); Carbon Dioxide 26 mmol/L (20-31); Eosinophils # (auto) 0.2 10 ^3/uL (0-0.8); Hemoglobin 10.3 g/dL (13.5-17.5); Lymphocytes # (auto) 1.1 10 ^3/uL (0.4-5.4); Lymphocytes % (auto) 15.5 % (10.0-50.0); Mean Corpuscular Hemoglobin 27.7 pg (28.0-32.0); Mean Corpuscular Hgb Conc. 33.2 g/dL (32.0-36.0); Mean Corpuscular Volume 83.6 fL (80.0-100.0); Monocytes # (auto) 0.4 10 ^3/uL (0-1.3); Neutrophils # (auto) 5.2 10 ^3/uL (1.6-8.6); Neutrophils % (auto) 75.3 % (37.0-80.0); Nucleated Red Blood Cells % 0.1 %; Platelet Count (auto) 184 10^3/uL (140-450); Red Cell Distribution Width 15.3 % (11.8-14.3)
[2024-03-14 13:09] LABS: BUN/Creatinine Ratio 19.7 (10.0-20.0); Blood Urea Nitrogen 25 mg/dL (9-23); Glucose 86 mg/dL (74-106)
[2024-03-14 17:19] LABS: Urine Bacteria FEW /hpf (None Seen); Urine Blood 2+ /uL (Negative); Urine Clarity Clear (Clear); Urine Color Light-Yellow (Yellow); Urine Mucus FEW (None Seen); Urine Protein, UAD 1+ (Negative); Urine Specific Gravity 1.022 (1.001-1.035); Urine Urobilinogen Normal (Negative); Urine WBC 21 /hpf (0 - 3); Urine pH 5.5 (5.0-9.0)
[2024-03-14] MEDS: cefTRIAXone 1GM/50ML D5W 50 ML IV ONE (18:05)
[2024-03-14 19:15] VITALS: BP 130/58; TEMP 98.1
[2024-03-14 20:45] VITALS: PULSE 72; RESP 18; O2SAT 72; O2SAT 95
[2024-03-14] MEDS ORDERED: CEFP200T15 PO (21:11)
[2024-03-15] MEDS ORDERED: CIPR-173 PO (08:57)
== END 2024-03-14 23:04 | disposition home or self-care (01) ==
LOC: ER 11:19
DX: N39.0 Urinary tract infection, site not specified (principal); D64.9 Anemia, unspecified; K64.8 Other hemorrhoids; K44.9 Diaphragmatic hernia without obstruction or gangrene; K57.90 Diverticulosis of intestine, part unspecified, without perforation or abscess without bleeding; G20.A1 Parkinson's disease without dyskinesia, without mention of fluctuations; E78.5 Hyperlipidemia, unspecified; E11.9 Type 2 diabetes mellitus without complications; K21.9 Gastro-esophageal reflux disease without esophagitis; Z79.899 Other long term (current) drug therapy; Z90.49 Acquired absence of other specified parts of digestive tract; Z90.89 Acquired absence of other organs
CPT/HCPCS: 36415; 74176; 80048; 81001; 85025; 96365; 96366; 99285; J0696